=== PATIENT | male | born 1955 | race Caucasian/White ===

== ENCOUNTER 2016-11-28 19:21 | Observation (INO) | payer BC ==
[~2016-11-28] VITALS: Ht 182.9 cm; Wt 91.2 kg
[2016-11-28 20:41] LABS: EOSINOPHIL (%) 1.7 % (0-5); EOSINOPHIL COUNT 0.2 K/uL (0-0.3); HEMATOCRIT 43.8 % (38.0-50.0); IMMATURE GRANULOCYTE (%) 0.4 % (0.0-0.7); INSTRUMENT ABS NEUTROPHIL CT 7.7 K/uL; LYMPHOCYTE COUNT 1.2 K/uL (1.0-2.8); MCV 88.1 FL (86-99); MEAN PLAT.VOLUME 10.2 uM^3 (9.0-12.4); MONOCYTE (%) 3.9 % (3-12); MONOCYTE COUNT 0.4 K/uL (0-0.8); NEUTROPHIL (%) 81.4 % (45-76); NEUTROPHIL COUNT 7.7 K/uL (1.8-6.4); PLATELET COUNT 200 K/uL (156-360); RBC DIS.WIDTH-CV 12.3 % (11.8-14.6); RBC DIS.WIDTH-SD 39.4 % (39-53); RED BLOOD COUNT 4.97 M/uL (4.00-5.50); WHITE BLOOD COUNT 9.5 K/uL (4.1-10.2)
[2016-11-28 20:50] LABS: INTER. NORMALIZED RATIO 1.1; PROTHROMBIN TIME 11.1 (9.2-11.2); PTT 25.7 (25-32)
[2016-11-28 20:51] LABS: CHLORIDE 104 mEq/L (99-109); POTASSIUM 3.9 mEq/L (3.7-5.4); SODIUM 139 mEq/L (136-147)
[2016-11-28 20:52] LABS: GLUCOSE 168 mg/dL (70-99)
[2016-11-28 20:54] LABS: ANION GAP 11 MEQ/L (2-14)
[2016-11-28 20:56] LABS: GFR ESTIMATE (CALCULATED) > 59 mL/min/
[2016-11-28 20:57] LABS: UREA NITROGEN (BUN) 14 mg/dL (9-23)
[2016-11-28 21:03] LABS: TROP-I INTERPRETATION NEGATIVE; TROPONIN-I < 0.01 ng/mL (0.0-0.30)
[2016-11-28] MEDS ORDERED: PRAVASTATIN SOD40 MG PO (23:29)
[2016-11-28] MEDS ORDERED: BISOPROLOL-HCT1 EACH PO (23:29)
[2016-11-28] MEDS ORDERED: LO-DOSE ASPIRIN81 M1 PO (23:30)
[2016-11-29 00:19] LABS: SERUM ETHYL ALCOHOL < 10 mg/dL
[2016-11-29 00:52] VITALS: BP 125/79
[2016-11-29 02:04] LABS: HDL CHOLESTEROL 44 MG/DL (Desirable>=40); LDL CHOLESTEROL 122 mg/dL (Desirable<100); NON-HDL CHOLESTEROL 148 mg/dL (Desirable<160); TOTAL CHOLESTEROL 192 mg/dL (Desirable<200); TRIGLYCERIDES 128 MG/DL (Normal: <150)
[2016-11-29 04:39] VITALS: BP 124/82
[2016-11-29 04:49] LABS: ADD MIUA? NO; BILIRUBIN NEGATIVE; BLOOD NEGATIVE; COLOR YELLOW ((YELLOW)); GLUCOSE (STRIP) NEGATIVE; KETONES NEGATIVE; LEUKOCYTES NEGATIVE; NITRITE NEGATIVE; PROTEIN (STRIP) NEGATIVE; UCUL ADDED? NO; UROBILINOGEN 0.2 MG/DL (0.2-1.0)
[2016-11-29 06:56] LABS: AMPHETAMINES QUANT VALUE 0 NG/ML; BARBITUATES QUANT VALUE 0 NG/ML; BENZODIAZEPINES QUANT VALUE 0 NG/ML; BENZODIAZEPINES, URINE SCREEN Negative (200 ng/mL); OPIATES QUANTITATIVE VALUE 0 NG/ML; PHENCYCLIDINE QUANT VALUE 0 NG/ML
[2016-11-29 07:16] VITALS: BP 118/74
[2016-11-29 07:34] LABS: Estimated Average Glucose 120 mg/dL (70-123); HEMOGLOBIN A1c (GLYCOHEMOGLOB) 5.8 % HGB (Below 5.7)
[2016-11-29 10:49] VITALS: BP 158/85
[2016-11-29 15:55] VITALS: BP 144/92
[2016-11-29] MEDS ORDERED: MEN'S MULTI-VI1 EACH PO (16:33)
[2016-11-29] MEDS ORDERED: MECLIZINE HCL12.5 M1 PO (16:33)
== END 2016-11-29 18:12 | disposition home or self-care (01) ==
LOC: EME 19:21 → 5WEST 23:16 → EDOF 23:16 → 5WEST 11-29 00:52
PROVIDERS: Emergency Medicine; Physician Assistant Medical
DX: R55 Syncope and collapse (principal); H53.2 Diplopia; R20.0 Anesthesia of skin; R42 Dizziness and giddiness; I10 Essential (primary) hypertension; E78.5 Hyperlipidemia, unspecified; R11.0 Nausea; S00.03XA Contusion of scalp, initial encounter; W19.XXXA Unspecified fall, initial encounter; Y92.009 Unspecified place in unspecified non-institutional (private) residence as the place of occurrence of the external cause; R73.9 Hyperglycemia, unspecified
CPT/HCPCS: 70450; 70551; 71010; 80048; 80061; 80306 90; 81003; 83036; 84484; 85025; 85610; 85730; 86900; 86901; 93005; 93306; 93880; 99281; 99285; G0378; G0480; J1200; J2765; J7030